=== PATIENT | female | born 1975 | race Caucasian/White ===

== ENCOUNTER 2016-08-29 13:18 | Emergency (ER) | payer OTHER ==
[2016-08-29] MEDS ORDERED: ACETAMINOPHEN TAB 500 MG TAB PO STA (14:15)
[2016-08-29] MEDS ORDERED: SODIUM CHLORIDE 0.9% 1,000 ML IV STA ×2 (14:15)
[2016-08-29] MEDS ORDERED: IBUPROFEN 600 MG TAB PO STA (14:15)
[2016-08-29] MEDS ORDERED: METOCLOPRAMIDE 5 MG/ML 2 ML VIAL IVP STA (14:17)
[2016-08-29 15:08] LABS: Appearance,Urine Cloudy (Clear); Bacteria,Urine Rare /hpf; Bilirubin,Urine Negative (Negative); Glucose,Urine (UA) 4+ (Negative); Ketones,Urine Negative (Negative); Leukocyte Esterase,Urine Small (Negative); Mucus,Urine Rare /hpf; Nitrite,Urine Negative (Negative); Particle Count 4761; Protein,Urine Negative (Negative); RBC,Urine 5 /hpf (0-5); Specific Gravity,Urine 1.013 (1.001-1.035); Squamous Epithelial Cell,Urine 1 /hpf (0-4); UA Billing (MACRO vs. MICRO) MICRO; Urobilinogen,Urine <2.0 mg/dL (<2.0); WBC,Urine 4 /hpf (0-5)
[2016-08-29 15:13] LABS: Basophils % (A) 0 %; CH 27.7; CHCM 33.7; Eosinophils % (A) 1 %; HCT 38.9 % (34.0-46.0); HDW 2.58; HGB 13.4 gm/dL (11.4-16.0); Luc % (Auto) 2; Lymphocytes # (A) 0.6 k/uL (1.0-4.8); Lymphocytes % (A) 14 %; MCH 28.6 pg (25.0-35.0); MCHC 34.6 g/dL (31.0-37.0); MCV 82.6 fL (80.0-100.0); Mean Platelet Volume 7.2; Monocytes # (A) 0.4 k/uL (0-1.0); Monocytes % (A) 9 %; Neutrophils # (A) 3.2 k/uL (1.3-7.7); Neutrophils % (A) 74 %; RDW 13.9 % (11.5-15.5); WBC 4.3 k/uL (3.8-10.6); WBC (Perox) 4.29
[2016-08-29 15:15] LABS: ALT 60 U/L (9-52); AST 58 U/L (14-36); Alkaline Phosphatase 55 U/L (38-126); Anion Gap 13 mmol/L; Blood Urea Nitrogen 9 mg/dL (7-17); Carbon Dioxide 20 mmol/L (22-30); Chloride 99 mmol/L (98-107); Glucose 245 mg/dL (74-99); Non-African American GFR(MDRD) >60 (>60 ml/min/1.73 sqM); Sodium 132 mmol/L (137-145); Total Bilirubin 0.5 mg/dL (0.2-1.3); Total Protein 7.5 g/dL (6.3-8.2)
[2016-08-29] MEDS ORDERED: SODIUM CHLORIDE 0.9% 1,000 ML IV ONE (16:01)
--- NOTE | 2016-08-29 16:09 | XR ---
EXAMINATION TYPE: XR chest 2V DATE OF EXAM: 08/29/2016 HISTORY: cough. REFERENCE: NONE. FINDINGS: There is some scarring or atelectasis at the left lung base. The lungs are otherwise clear. Pleural spaces are clear. Heart size is normal. IMPRESSION: SCARRING VERSUS ATELECTASIS, LEFT LUNG BASE.
--- NOTE | 2016-08-29 16:24 | ED ---
General Adult HPI - General Chief complaint: Fever Stated complaint: Fever Time Seen by Provider: 08/29/16 14:06 Source: patient, RN notes reviewed Mode of arrival: ambulatory Limitations: no limitations - History of Present Illness Initial comments: 40-year-old female presenting with a 2 day history of fever, diffuse body aches , mild cough with pain on deep inspiration, headache. Patient also reports some nausea, denies vomiting or diarrhea. She denies rhinorrhea or nasal congestion, denies sore throat, denies rash. She presented for evaluation as she was concerned that her had shingles and she thought this may be related. Patient does have a history of chickenpox as a child and denies any rash at this time. Past medical history of diabetes and hypertension. Patient also reports some left ear drainage, no pain. - Related Data Home Medications Medication Instructions Recorded Confirmed ALPRAZolam [Xanax] 1 - 2 mg PO DAILY PRN 08/29/16 08/29/16 Acetaminophen Tab [Tylenol] 500 mg PO TID PRN 08/29/16 08/29/16 Glimepiride [Amaryl] 4 mg PO BID 08/29/16 08/29/16 Lisinopril-Hctz 10-12.5 mg 1 tab PO DAILY 08/29/16 08/29/16 [Zestoretic 10-12.5] metFORMIN HCL 1,000 mg PO BID 08/29/16 08/29/16 Previous Rx's Medication Instructions Recorded Ibuprofen [Motrin] 600 mg PO Q8HR PRN #24 tab 08/29/16 Allergies Allergy/AdvReac Type Severity Reaction Status Date / Time hydrocodone [From Vicodin] Allergy CIRA Verified 08/29/16 14:34 Review of Systems ROS Statement: Those systems with pertinent positive or pertinent negative responses have been documented in the HPI. ROS Other: All systems not noted in ROS Statement are negative. ENT: Denies: ear pain Respiratory: Reports: cough. Denies: dyspnea Endocrine: Reports: fatigue Gastrointestinal: Reports: nausea. Denies: abdominal pain Genitourinary: Denies: dysuria Past Medical History Past Medical History: Diabetes Mellitus, Hypertension History of Any Multi-Drug Resistant Organisms: None Reported Past Surgical History: Section Past Psychological History: Anxiety Smoking Status: Never smoker Past Alcohol Use History: Rare Past Drug Use History: None Reported General Exam Limitations: no limitations General appearance: alert, in no apparent distress Head exam: Present: atraumatic, normocephalic Eye exam: Present: normal appearance, PERRL ENT exam: Present: mucous membranes dry, TM's normal bilaterally Neck exam: Present: normal inspection, full ROM. Absent: meningismus Respiratory exam: Present: normal lung sounds bilaterally. Absent: respiratory distress, wheezes, rhonchi Cardiovascular Exam: Present: normal rhythm, tachycardia GI/Abdominal exam: Present: soft. Absent: distended, tenderness, guarding, rebound Extremities exam: Present: normal inspection, full ROM, normal capillary refill. Absent: pedal edema Neurological exam: Present: alert, oriented X3, CN II-XII intact. Absent: motor sensory deficit Skin exam: Present: warm, dry Course Vital Signs 08/29/16 08/29/16 08/29/16 13:22 14:17 16:11 Temperature 100.4 F H 100.3 F H 98.3 F Pulse Rate 113 H 107 H 84 Respiratory 20 16 18 Rate Blood Pressure 131/76 124/65 118/62 O2 Sat by Pulse 98 98 97 Oximetry - Reevaluation(s) Reevaluation #1: 08/29/16 16:20 Patient is given IV hydration, antiemetics, and Tylenol Motrin. On reevaluation she is feeling better, states she has a small residual headache remaining but otherwise feels much better. Medical Decision Making - Medical Decision Making 40-year-old female presenting with body aches, fever, mild cough, and headache. Laboratory studies are obtained and are significant for normal white blood cell count, mildly elevated lactic acid at 3, blood sugar is elevated over the patient does have history diabetes. Urinalysis shows no signs of infection, is negative for ketones. On exam the patient does have signs of dehydration and given the lactic acid she received 2 L of IV hydration. She is also given antiemetics for nausea, and Motrin and Tylenol for her fever and myalgias. On reevaluation patient is feeling much better. She is informed that this is likely a viral illness and should continue taking Tylenol Motrin as well as staying hydrated at home. She will follow-up with her primary care physician in the next several days. She is instructed to return to the emergency department with worsening symptoms. - Lab Data Result diagrams: 08/29/16 14:35 08/29/16 14:35 Lab Results 08/29/16 08/29/16 08/29/16 Range/Units 14:35 14:35 14:35 WBC 4.3 (3.8-10.6) k/uL RBC 4.70 (3.80-5.40) m/uL Hgb 13.4 (11.4-16.0) gm/dL Hct 38.9 (34.0-46.0) % MCV 82.6 (80.0-100.0) fL MCH 28.6 (25.0-35.0) pg MCHC 34.6 (31.0-37.0) g/dL RDW 13.9 (11.5-15.5) % Plt Count 142 L (150-450) k/uL Neutrophils % 74 % Lymphocytes % 14 % Monocytes % 9 % Eosinophils % 1 % Basophils % 0 % Neutrophils # 3.2 (1.3-7.7) k/uL Lymphocytes # 0.6 L (1.0-4.8) k/uL Monocytes # 0.4 (0-1.0) k/uL Eosinophils # 0.0 (0-0.7) k/uL Basophils # 0.0 (0-0.2) k/uL Sodium 132 L (137-145) mmol/L Potassium 4.0 (3.5-5.1) mmol/L Chloride 99 (98-107) mmol/L Carbon Dioxide 20 L (22-30) mmol/L Anion Gap 13 mmol/L BUN 9 (7-17) mg/dL Creatinine 0.50 L (0.52-1.04) mg/dL Est GFR (MDRD) Af Amer >60 (>60 ml/min/1.73 sqM) Est GFR (MDRD) Non-Af >60 (>60 ml/min/1.73 sqM) Glucose 245 H (74-99) mg/dL Plasma Lactic Acid Can 3.2 H* (0.7-2.0) mmol/L Calcium 9.0 (8.4-10.2) mg/dL Total Bilirubin 0.5 (0.2-1.3) mg/dL AST 58 H (14-36) U/L ALT 60 H (9-52) U/L Alkaline Phosphatase 55 (38-126) U/L Total Protein 7.5 (6.3-8.2) g/dL Albumin 4.1 (3.5-5.0) g/dL Urine Color Urine Appearance (Clear) Urine pH (5.0-8.0) Ur Specific [place] (1.001-1.035) Urine Protein (Negative) Urine Glucose (UA) (Negative) Urine Ketones (Negative) Urine Blood (Negative) Urine Nitrite (Negative) Urine Bilirubin (Negative) Urine Urobilinogen (<2.0) mg/dL Ur Leukocyte Esterase (Negative) Urine RBC (0-5) /hpf Urine WBC (0-5) /hpf Ur Squamous Epith Cells (0-4) /hpf Urine Bacteria (None) /hpf Urine Mucus (None) /hpf Urine HCG, Qual (Not Detectd) 08/29/16 08/29/16 Range/Units 14:35 14:35 WBC (3.8-10.6) k/uL RBC (3.80-5.40) m/uL Hgb (11.4-16.0) gm/dL Hct (34.0-46.0) % MCV (80.0-100.0) fL MCH (25.0-35.0) pg MCHC (31.0-37.0) g/dL RDW (11.5-15.5) % Plt Count (150-450) k/uL Neutrophils % % Lymphocytes % % Monocytes % % Eosinophils % % Basophils % % Neutrophils # (1.3-7.7) k/uL Lymphocytes # (1.0-4.8) k/uL Monocytes # (0-1.0) k/uL Eosinophils # (0-0.7) k/uL Basophils # (0-0.2) k/uL Sodium (137-145) mmol/L Potassium (3.5-5.1) mmol/L Chloride (98-107) mmol/L Carbon Dioxide (22-30) mmol/L Anion Gap mmol/L BUN (7-17) mg/dL Creatinine (0.52-1.04) mg/dL Est GFR (MDRD) Af Amer (>60 ml/min/1.73 sqM) Est GFR (MDRD) Non-Af (>60 ml/min/1.73 sqM) Glucose (74-99) mg/dL Plasma Lactic Acid Can (0.7-2.0) mmol/L Calcium (8.4-10.2) mg/dL Total Bilirubin (0.2-1.3) mg/dL AST (14-36) U/L ALT (9-52) U/L Alkaline Phosphatase (38-126) U/L Total Protein (6.3-8.2) g/dL Albumin (3.5-5.0) g/dL Urine Color Light Yellow Urine Appearance Cloudy H (Clear) Urine pH 5.0 (5.0-8.0) Ur Specific [place] 1.013 (1.001-1.035) Urine Protein Negative (Negative) Urine Glucose (UA) 4+ H (Negative) Urine Ketones Negative (Negative) Urine Blood Negative (Negative) Urine Nitrite Negative (Negative) Urine Bilirubin Negative (Negative) Urine Urobilinogen <2.0 (<2.0) mg/dL Ur Leukocyte Esterase Small H (Negative) Urine RBC 5 (0-5) /hpf Urine WBC 4 (0-5) /hpf Ur Squamous Epith Cells 1 (0-4) /hpf Urine Bacteria Rare H (None) /hpf Urine Mucus Rare H (None) /hpf Urine HCG, Qual Not Detected (Not Detectd) Disposition Clinical Impression: Viral infection Disposition: HOME SELF-CARE Condition: Good Instructions: Dehydration (ED), Viral Syndrome (ED) Prescriptions: Ibuprofen [Motrin] 600 mg PO Q8HR PRN #24 tab PRN Reason: Pain Referrals: Lorenzo Villanueva MD [Primary Care Provider] - 1-2 days Time of Disposition: 16:23
[2016-08-29 16:57] VITALS: RESP 16
[2016-08-29 17:10] VITALS: BP 121/67; PULSE 67; TEMP 98.4
== END 2016-08-29 17:11 | disposition home or self-care (01) ==
LOC: EC 13:18
DX: B34.9 Viral infection, unspecified (principal); E11.9 Type 2 diabetes mellitus without complications; I10 Essential (primary) hypertension; Z53.29 Procedure and treatment not carried out because of patient's decision for other reasons; Z88.5 Allergy status to narcotic agent; Z79.84 Long term (current) use of oral hypoglycemic drugs; Z79.899 Other long term (current) drug therapy
CPT/HCPCS: 36415; 71020; 80053; 81001; 81025; 83605; 85025; 87086; 96360; 96361; 99283

== ENCOUNTER → 2016-09-21 | Outpatient (CLI) | payer OTHER | END | disposition home or self-care (01) | LOC: LABWHC1 12:50 | PROVIDERS: ATTEND Internal Medicine | DX: E87.2 Acidosis (principal) | CPT/HCPCS: 36415; 83605 ==

== ENCOUNTER → 2022-07-25 | Outpatient (CLI) | payer OTHER | END | disposition home or self-care (01) | LOC: LABWHC1 11:20 | PROVIDERS: ATTEND Nurse Practitioner | DX: E11.65 Type 2 diabetes mellitus with hyperglycemia (principal) | CPT/HCPCS: 36415; 83036 ==

== ENCOUNTER → 2024-01-20 | Outpatient (CLI) | payer OTHER ==
[2024-01-20 14:56] LABS: ALT 26 U/L (8-44); AST 19 U/L (13-35); Albumin 4.1 g/dL (3.8-4.9); Albumin/Globulin Ratio 1.28 Ratio (1.60-3.17); Alkaline Phosphatase 60 U/L (41-126); BUN/Creat Ratio 30.33 Ratio (12.00-20.00); Blood Urea Nitrogen 18.2 mg/dL (9.0-27.0); Calcium 9.3 mg/dL (8.7-10.3); Carbon Dioxide 20.1 mmol/L (21.6-31.8); Chloride 100 mmol/L (96-109); Chol/HDL Ratio 2.91 Ratio; Globulin 3.2 g/dL (1.6-3.3); Glucose 287 mg/dL (70-110); Potassium 4.6 mmol/L (3.5-5.5); Sodium 132 mmol/L (135-145); Total Bilirubin 0.5 mg/dL (0.3-1.2); Total Protein 7.3 g/dL (6.2-8.2); VLDL Calculation 15.48 mg/dL (5.00-40.00)
[2024-01-20 20:16] LABS: Microalbumin Creatinine Ratio <22 mg/g Cr (0-30); Urine Creatinine 54.8 mg/dL (28.0-217.0)
== END | disposition home or self-care (01) ==
LOC: LABWHC1 11:06
PROVIDERS: ATTEND Internal Medicine
DX: E11.65 Type 2 diabetes mellitus with hyperglycemia (principal)
CPT/HCPCS: 36415; 80053; 80061; 82043; 82570; 83036